=== PATIENT | male | born 1975 | race Caucasian/White ===

== ENCOUNTER 2019-01-06 10:11 | Emergency (ER) | payer OTHER ==
[~2019-01-06] VITALS: Ht 177.8 cm; Wt 81.8 kg
[2019-01-06 10:12] VITALS: BP 179/112
[2019-01-06] MEDS ORDERED: KETOROLAC 30 MG/ML VIAL (J1885) IV ONE (10:45)
[2019-01-06 11:06] LABS: BASO # 0.1 10^3/uL (0.0-0.2); BASO % 0.7 % (0.0-1.0); EOS # 0.1 10^3/uL (0.0-0.50); EOS % 1.4 % (0.0-3.0); HEMATOCRIT 46.9 % (42.0-52.0); HEMOGLOBIN 16.5 g/dl (13.5-17.5); LYMPH # 2.2 10^3/uL (1.5-4.5); MEAN CORPUSCULAR HEMOGLOBIN 30.2 pg (27.0-33.0); MEAN CORPUSCULAR HGB CONC 35.2 g/dl (32.0-36.5); MEAN CORPUSCULAR VOLUME 85.9 fl (80.0-96.0); MONO # 0.4 10^3/uL (0.0-0.8); NEUTROPHILS # 4.2 10^3/uL (1.8-7.7); NEUTROPHILS % 60.2 % (36.0-66.0); PLATELET COUNT, AUTOMATED 227 10^3/uL (150-450); RED BLOOD COUNT 5.46 10^6/uL (4.30-6.10)
[2019-01-06 11:25] LABS: BLOOD UREA NITROGEN 10 MG/DL (7-18); CARBON DIOXIDE LEVEL 24 MEQ/L (21-32); CHLORIDE LEVEL 108 MEQ/L (98-107); GLOMERULAR FILTRATION RATE > 60.0 (>60); GLUCOSE, FASTING 93 MG/DL (70-100); POTASSIUM SERUM 3.7 MEQ/L (3.5-5.1); SODIUM LEVEL 140 MEQ/L (136-145)
--- NOTE | 2019-01-06 11:39 | REP ---
CT abdomen and pelvis without IV or oral contrast: History: Left lateral abdomen pain. Rule out kidney stone. CT findings: Preliminary digital learning support teacher radiograph is unremarkable. The lung bases are clear on axial CT images. The liver and the spleen are normal in size, homogeneous in texture. Gallbladder and pancreas are unremarkable. No adrenal lesion is seen. There is a peripheral slightly hyperdense cyst at the left mid kidney posterolaterally. This measures 1 cm in diameter. No hydronephrosis is seen. There is an intrarenal calculus in the lower pole of the left kidney measuring 0.3 cm in diameter. No intrarenal calculus is noted on the right. There is minimal fullness in the left ureter. A 3 mm calculus is seen in the distal ureter several centimeters above the ureterovesical junction on the left. This is seen on axial image 127 of 159 in series 201. There are dystrophic calcifications in the prostate gland. No bladder calculus is seen. A normal appendix is seen. Small and large intestinal bowel loops are unremarkable. Impression: There is a 3 mm calculus in the left distal ureter without intrarenal hydronephrosis. Minimal ureterectasis. There is also an intrarenal calculus in the lower pole of the left kidney. There is a 1 cm hyperdense cyst in the left kidney as well. Otherwise negative. Electronically Signed by Piyush Chaudahry MD 01/06/2019 12:21 P
[2019-01-06] MEDS ORDERED: FLOM0.4C39 PO (11:45)
[2019-01-06] MEDS ORDERED: KETO10TAB PO (11:45)
[2019-01-06] MEDS ORDERED: TAMSULOSIN 0.4 MG CAP PO ONE (12:00)
== END 2019-01-06 12:06 | disposition home or self-care (01) ==
LOC: M ED 10:11
DX: N20.1 Calculus of ureter (principal); I10 Essential (primary) hypertension

== ENCOUNTER → 2019-01-21 | Outpatient (REF) | payer OTHER ==
[~2019-01-21] MED LIST: FLOM0.4C39 PO; KETO10TAB PO
[2019-01-21 18:05] LABS: AMORPHOUS SEDIMENT LARGE (NEGATIVE); APPEARANCE, URINE CLOUDY (CLEAR); BACTERIA, URINE AUTO NEGATIVE (NEGATIVE); BILIRUBIN, URINE AUTO NEGATIVE (NEGATIVE); BLOOD, URINE BLOOD NEGATIVE (NEGATIVE); COLOR, URINE YELLOW (YELLOW); GLUCOSE, URINE (UA) AUTO NEGATIVE (NEGATIVE); KETONE, URINE AUTO NEGATIVE (NEGATIVE); LEUKOCYTE ESTERASE, URINE AUTO NEGATIVE (NEGATIVE); NITRITE, URINE AUTO NEGATIVE (NEGATIVE); PROTEIN, URINE AUTO NEGATIVE (NEGATIVE); RBC, URINE AUTO 0 /HPF (0-3); SPECIFIC GRAVITY URINE AUTO 1.013 (1.002-1.035); SQUAMOUS EPITHELIAL CELL UR AU 0 /HPF (0-6); UROBILINOGEN, URINE AUTO 0.2 mg/dL (0.0-2.0); WBC, URINE AUTO 0 /HPF (0-3)
[2019-01-30 00:07] LABS: CA Oxalate Dihy 10 % (.); Ca Ox Monohydrate 55 % (.)
== END ==
LOC: M SMT 17:14
PROVIDERS: ATTEND Nurse Practitioner Women's Health
DX: N20.1 Calculus of ureter (principal)

== ENCOUNTER → 2019-01-30 | Outpatient (CLI) | payer OTHER ==
[~2019-01-30] MED LIST changes: +ISOVUE-370 76% 100ML VIAL (Q9967) As Ordered ONE
--- NOTE | 2019-01-31 04:00 | REP ---
Clinical: Microscopic hematuria. Technique: Axial precontrast, contrast enhanced, and delayed images of the abdomen and pelvis using 100 ml Isovue 370 intravenous contrast material. 3-D MIP urogram images obtained. Comparison: 01/06/2019. Findings: Evaluation of the urinary tract system demonstrates 1 mm nonobstructing calculus in the lower pole left kidney along with 9 mm exophytic hyperdense cyst along the posterolateral margin of the left kidney. Right kidney and bilateral ureters as well as bladder are normal. Previously noted 3 mm calculus in the distal left ureter has resolved. Liver, spleen, pancreas, gallbladder, and bilateral adrenal glands are normal. The enteric system is without obstruction or acute inflammatory process. Normal terminal ileum and appendix identified in the right lower quadrant. Pelvis demonstrates normal bladder and age appropriate prostate/seminal vesicles. No ascites. No free air. No adenopathy. Abdominal aorta without aneurysm. Musculoskeletal structures are intact. Lung bases are clear. Impression: 1. 1 mm nonobstructing left renal calculus and 9 mm benign appearing hyperdense cyst in the left kidney. Urinary tract system is otherwise unremarkable. 2. No further acute abdominopelvic pathology appreciated. Electronically Signed by Zacarias Salcedo MD 01/31/2019 03:51 A
== END ==
LOC: M RAD 15:38
PROVIDERS: ATTEND Nurse Practitioner Women's Health
DX: N20.0 Calculus of kidney (principal); N28.1 Cyst of kidney, acquired; R31.29 Other microscopic hematuria
CPT/HCPCS: 74178; Q9967

== ENCOUNTER → 2019-02-18 | Outpatient (REF) | payer OTHER ==
[~2019-02-18] MED LIST changes: -ISOVUE-370 76% 100ML VIAL (Q9967) As Ordered ONE
[2019-02-18 13:50] LABS: BASO # 0.1 10^3/uL (0.0-0.2); BASO % 0.8 % (0.0-1.0); EOS # 0.1 10^3/uL (0.0-0.50); EOS % 1.8 % (0.0-3.0); HEMATOCRIT 48.4 % (42.0-52.0); HEMOGLOBIN 16.6 g/dl (13.5-17.5); LYMPH # 2.1 10^3/uL (1.5-4.5); LYMPH % 28.7 % (24.0-44.0); MEAN CORPUSCULAR HEMOGLOBIN 29.6 pg (27.0-33.0); MEAN CORPUSCULAR HGB CONC 34.3 g/dl (32.0-36.5); MEAN CORPUSCULAR VOLUME 86.4 fl (80.0-96.0); MONO # 0.5 10^3/uL (0.0-0.8); MONO % 6.1 % (0.0-5.0); NEUTROPHILS # 4.6 10^3/uL (1.8-7.7); NEUTROPHILS % 62.3 % (36.0-66.0); PLATELET COUNT, AUTOMATED 259 10^3/uL (150-450); WHITE BLOOD COUNT 7.4 10^3/uL (4.0-10.0)
[2019-02-18 14:02] LABS: ALBUMIN 4.3 GM/DL (3.2-5.2); ALT/SGPT 31 U/L (12-78); BILIRUBIN,TOTAL 0.5 MG/DL (0.2-1.0); BLOOD UREA NITROGEN 15 MG/DL (7-18); CALCIUM LEVEL 9.6 MG/DL (8.5-10.1); CARBON DIOXIDE LEVEL 28 MEQ/L (21-32); CHLORIDE LEVEL 109 MEQ/L (98-107); CHOLESTEROL LEVEL 196 MG/DL (<200); CHOLESTEROL RISK RATIO 5.939 (<5); CREATININE FOR GFR 1.02 MG/DL (0.70-1.30); FREE T4 0.99 NG/DL (0.76-1.46); GLOMERULAR FILTRATION RATE > 60.0 (>60); GLUCOSE, FASTING 91 MG/DL (70-100); HDL CHOLESTEROL 33 MG/DL (>40); LDL CHOLESTEROL 108 MG/DL (<100); NON-HDL-C 163 MG/DL; POTASSIUM SERUM 5.2 MEQ/L (3.5-5.1); SODIUM LEVEL 141 MEQ/L (136-145); TOTAL PROTEIN 7.3 GM/DL (6.4-8.2); TRIGLYCERIDES LEVEL 277 MG/DL (<150)
[2019-02-18 14:24] LABS: HEMOGLOBIN A1c 5.5 %
== END ==
LOC: M LABDRWAD 12:14
PROVIDERS: ATTEND Physician Assistant
DX: Z13.29 Encounter for screening for other suspected endocrine disorder (principal); Z13.220 Encounter for screening for lipoid disorders

== ENCOUNTER → 2019-03-05 | Outpatient (CLI) | payer OTHER ==
--- NOTE | 2019-03-08 08:32 | SLEEPHOME ---
DATE OF PROCEDURE: 03/05/2019 ORDERED BY: Tad Rizo Diagnostic home sleep testing was performed due to concern for the obstructive sleep apnea syndrome in this patient with a history of excessive somnolence and snoring. For testing nocturnal T3 respiratory monitoring device was used. Continuous record was made of pulse oxygen saturation airflow, chest, abdominal strain and body position. 9 hours and 59 minutes of data were reviewed. There were 5 hours and 49 minutes marked as time in bed. During the interval marked time in bed there were 144 respiratory events identified of 10 seconds in duration or greater for respiratory event index of 24.70 events were primarily obstructive. Baseline pulse rate 64 beats per minute, pulse rate range 45-117. Baseline saturation was 94% saturations fell to 80%. Testing was performed in both the supine and nonsupine positions. IMPRESSION: Abnormal home sleep testing with repetitive respiratory events and oxygen desaturations to 80% with a respiratory event index of 24.7 is consistent with the obstructive sleep apnea syndrome. RECOMMENDATIONS: The patient should be encouraged to undergo formal sleep evaluation.
== END ==
LOC: M SLEEP HO 09:55
PROVIDERS: ATTEND Physician Assistant
DX: G47.8 Other sleep disorders (principal)

== ENCOUNTER 2021-04-20 11:13 | Emergency (ER) | payer OTHER ==
[~2021-04-20] VITALS: Ht 172.7 cm; Wt 81.8 kg
[2021-04-20] MEDS ORDERED: LISI10TA22 (11:19)
[2021-04-20] MEDS ORDERED: ROSU10TA6 (11:19)
--- OUTSIDE RECORDS SUMMARY | 2021-04-20 11:22 | CCD ---
Author Author [facility] Organization [facility] Address Unknown Phone Unavailable Care Team Providers Care Assembler Camper Name Role Phone Natalie CABRALES DPM Unavailable Unavailable Natalie CABRALES DPM Unavailable Unavailable Natalie CABRALES DPM Unavailable Unavailable Natalie CABRALES DPM Unavailable Unavailable Natalie CABRALES DPM Unavailable Unavailable Natalie CABRALES DPM Unavailable Unavailable Natalie CABRALES DPM Unavailable Unavailable Natalie CABRALES DPM Unavailable Unavailable Natalie CABRALES DPM Unavailable Unavailable Natalie CABRALES DPM Unavailable Unavailable Natalie CABRALES DPM Unavailable Unavailable Natalie CABRALES DPM Unavailable Unavailable Natalie CABRALES DPM Unavailable Unavailable Natalie CABRALES DPM Unavailable Unavailable [place] CABRALES DPM Unavailable Unavailable Natalie CABRALES DPM Unavailable Unavailable Natalie CABRALES DPM Unavailable Unavailable Natalie CABRALES DPM Unavailable Unavailable Natalie CABRALES DPM Unavailable Unavailable Natalie CABRALES DPM Unavailable Unavailable Natalie CABRALES DPM Unavailable Unavailable Natalie CABRALES DPM Unavailable Unavailable Natalie CABRALES DPM Unavailable Unavailable Natalie CABRALES DPM Unavailable Unavailable MAJAK, R TEMITOPE DPM Unavailable Unavailable MAJAK, R TEMITOPE DPM Unavailable Unavailable MAJAK, R TEMITOPE DPM Unavailable Unavailable MAJAK, R TEMITOPE DPM Unavailable Unavailable MAJAK, R TEMITOPE DPM Unavailable Unavailable MAJAK, R TEMITOPE DPM Unavailable Unavailable MAJAK, R TEMITOPE DPM Unavailable Unavailable Tashia Shah RDH Unavailable Re-disclosure Warning The records that you are about to access may contain information from federally-assisted alcohol or drug abuse programs. If such information is present, then the following federally mandated warning applies: This information has been disclosed to you from records protected by federal confidentiality rules (42 CFR part 2). The federal rules prohibit you from making any further disclosure of this information unless further disclosure is expressly permitted by the written consent of the person to whom it pertains or as otherwise permitted by 42 CFR part 2. A general authorization for the release of medical or other information is NOT sufficient for this purpose. The Federal rules restrict any use of the information to criminally investigate or prosecute any alcohol or drug abuse patient.The records that you are about to access may contain highly sensitive health information, the redisclosure of which is protected by Article 27-F of the [facility] Public Health law. If you continue you may have access to information: Regarding HIV / AIDS; Provided by facilities licensed or operated by the [facility] Office of Mental Health; or Provided by the [facility] Office for People With Developmental Disabilities. If such information is present, then the following [facility] mandated warning applies: This information has been disclosed to you from confidential records which are protected by state law. State law prohibits you from making any further disclosure of this information without the specific written consent of the person to whom it pertains, or as otherwise permitted by law. Any unauthorized further disclosure in violation of state law may result in a fine or shelter sentence or both. A general authorization for the release of medical or other information is NOT sufficient authorization for further disc losure. Family History Family Member Name Family Member Gender Family Member Status Date o f Status Description Data Source(s) Unknown Male Problem MEDENT ([facility]) Unknown Female Problem MEDENT ([facility]) Unknown Female Problem MEDENT ([facility]) Unknown Unknown Problem MED[facility] ([facility]) Encounters Encounter Providers Location Date Indications Data Source(s ) Outpatient Attender: TEMITOPE CABRALES [facility] Office 01/2021 09:15:00 AM EDT [facility] ([facility] <td ID="encounterTypeDescriptionID0">H A dult Prophy</td><td>Tashia Shah RD</td><td>[facility]</td><td>05/12/2020</td><td></td>Unknown Attender: Tashia Harperke RD [facility] 05/12/2020 08:04:00 AM EST - 05/12/2020 11:59:00 PM EST [facility] ([facility]) Medications No Information Insurance Providers Payer name Policy type / Coverage type Policy ID Covered democrat ID Covered democrat's relationship to maza Policy Maza Plan Information [employer] (WC) Workers Compensation .[id number] Self R [facility] [id number] SP [id number] R [facility] [id number] SP [id number] [facility] [id number] SP [id number] [facility] [id number] SP [id number] ANSI-Commercial [id number] [employer] W/C [id number] [employer] [id number] Self [id number] [employer] [id number] Self [employer] W/C [id number] [employer] (pr) Medigap Part B [id number] Self [employer] [id number] Self 333 [employer] W/C [id number] SP [id number] [employer] [id number] SP [id number] [facility] SELF INSURED [id number] SP [id number] DEPT OF LABOR [id number] SP [id number] ANSI-Commercial [id number] ANSI-Commercial [id number] Problems, Conditions, and Diagnoses Code Display Name Description Problem Type Effective Dates Data Source(s) B35.1 Onychomycosis Onychomycosis Problem 04/15/2021 12:00:00 AM EDT [facility] ([facility] Surgeries/Procedures Procedure Description Date Indications Data Source(s) OFFICE OUTPATIENT NEW 30 MINUTES 04/02/2021 12:00:00 A M EDT [facility] ([facility] Oral Hygiene[facility] Oral Hygiene[facility] 05/12/2020 12:00:00 AM EST [facility] ([facility]) Nutritional Counseling Nutritional Counseling 05/12/2020 12:00:00 A M EST [facility] ([facility]) Prophylaxis Adult Prophylaxis Adult 05/12/2020 12:00:00 AM EST [facility] ([facility]) Bitewing - 4 radiographic images Bitewing - 4 radiographic i mages 05/12/2020 12:00:00 AM EST [facility] ([facility]) Results ID Date Data Source [id number] 06/29/2020 12:00:00 AM EST [place] Name Value Range Interpretation Code Description Data Nayeli rce(s) Supporting Document(s) SARS coronavirus 2 Ag Negative [place] This lab was ordered by [facility] and reported by [facility]. Procedure Social History No Information Vital Signs ID Date Data Source UNK Name Value Range Interpretation Code Description Data Source(s) Body height 70 [in_i] 70 [in_i] [facility] ([facility] 5'10" Body weight 185.00 [lb_av] 185.00 [lb_av] MEDEN T ([facility] Systolic blood pressure 138 mm[Hg] 138 mm[Hg] EDENT ([facility] Diastolic blood pressure 88 mm[Hg] 88 mm[Hg] MED[facility] ([facility] Heart rate 76 /min 76 /min MED[facility] ([facility] Body mass index (BMI) [Ratio] 26.5 kg/m2 26.5 k g/m2 [facility] ([facility]
--- OUTSIDE RECORDS SUMMARY | 2021-04-20 11:22 | CCD | Continuity of Care Document ---
Author Author Wencesla[facility] BROWNING DPCarmen Organization Unknown Address [address] [place] [address], [facility] [address] [place] [address] Phone [phone] Care Team Providers Care Reflow Operator Name Role Phone Tad Hall AUTM [phone] Problems Active Problems Provider Date Onychomycosis Giovani Browning DPM Onset: 04/15/2021 Social History Type Date Description Comments Sex Unknown ETOH Use Occasionally consumes alcohol ma ybe once every twoweeks has a beer Tobacco Use Start: Unknown Patient has never smoked Allergies and adverse reactions Description No Known Drug Allergies Medications Active Medications SIG Qnty Indications Ordering Provide r Date Lisinopril Unknown Rosuvastatin Calcium Unknown 00/0 Immunizations Description No Information Available Vital Signs Date Vital Result Comment 04/02/2021 9:03am Height 70 inches 5'10" Weight 185.00 lb BP Systolic 138 mmHg BP Diastolic 88 mmHg Heart Rate 76 /min BMI (Body Mass Index) 26.5 kg/m2 Results Description No Information Available Procedures Date Code Description Status 04/02/2021 60859 Office/Outpatient New Low MDM 30 -44 Minutes Completed Medical Devices Description No Information Available Encounters Type Date Location Provider Dx Diagnosis Office Visit 04/02/2021 9:15a [place] [facility] Giovani Browning DPM B35.1 Tinea unguium Assessments Date Code Description Provider 04/02/2021 B35.1 Tinea unguium Giovani Browning DPM Plan of Treatment Future Appointment(s):* 06/04/2021 9:30 am - Giovani Browning DPM at [place] [facility] Functional Status Description No Information Available Mental Status Description No Information Available Referrals Description No Information Available
[2021-04-20 12:18] LABS: RSV AMPLIFICATION NEGATIVE (NEGATIVE)
--- OUTSIDE RECORDS SUMMARY | 2021-04-20 12:41 | CCD ---
Author Author [facility] Organization [facility] Address Unknown Phone Unavailable Care Team Providers Care Water Conservation Specialist Name Role Phone Natalie CABRALES DPM Unavailable [...] is protected by Article 27-F of the [facility] Public Health law. If you continue you may have access to information: Regarding HIV / AIDS; Provided by facilities licensed or operated by the [facility] Office of Mental Health; or Provided by the [facility] Office for People With Developmental Disabilities. If such information is present, then the following [facility] mandated warning applies: This information has been [...] law may result in a fine or retirement sentence or both. A general authorization for [...] Data Source(s ) Outpatient Attender: TEMITOPE CABRALES [facility] Office 01/2021 09:15:00 AM EDT [facility] ([facility] <td ID="encounterTypeDescriptionID0">H A dult Prophy</td><td>Tashia Shah RD</td><td>[facility]</td><td>05/12/2020</td><td></td>Unknown Attender: Tashia Harperke RD [facility] 05/12/2020 08:04:00 AM EST - 05/12/2020 11:59:00 PM EST [facility] ([facility]) Medications No Information Insurance Providers Payer name Policy type / Coverage type Policy ID Covered green party ID Covered green party's relationship to maza Policy Maza Plan Information [employer] (WC) Workers Compensation .[id number] Self R [facility] [id number] SP [id number] R [facility] [id number] SP [id number] [facility] [id number] SP [id number] [facility] [id number] SP [id number] ANSI-Commercial [id number] [employer] W/C [id number] [employer] [id number] Self [id number] [employer] [id number] Self [employer] W/C [id number] [employer] (pr) Medigap Part B [id number] Self [employer] [id number] Self 333 [employer] W/C [id number] SP [id number] [employer] [id number] SP [id number] [facility] SELF INSURED [id number] SP [id number] DEPT OF LABOR [id number] SP [id number] ANSI-Commercial [id number] ANSI-Commercial [id number] Problems, Conditions, and Diagnoses Code Display Name Description Problem Type Effective Dates Data Source(s) B35.1 Onychomycosis Onychomycosis Problem 04/15/2021 12:00:00 AM EDT [facility] ([facility] Surgeries/Procedures Procedure Description Date Indications Data Source(s) OFFICE OUTPATIENT NEW 30 MINUTES 04/02/2021 12:00:00 A M EDT [facility] ([facility] Oral Hygiene[facility] Oral Hygiene[facility] 05/12/2020 12:00:00 AM EST [facility] ([facility]) Nutritional Counseling Nutritional Counseling 05/12/2020 12:00:00 A M EST [facility] ([facility]) Prophylaxis Adult Prophylaxis Adult 05/12/2020 12:00:00 AM EST [facility] ([facility]) Bitewing - 4 radiographic images [facility] - 4 radiographic i mages 05/12/2020 12:00:00 AM EST [facility] ([facility]) Results ID Date Data Source [id number] 06/29/2020 12:00:00 AM EST [place] Name Value Range Interpretation Code Description Data Nayeli rce(s) Supporting Document(s) SARS coronavirus 2 Ag Negative [place] This lab was ordered by [facility] and reported by [facility]. Procedure Social History No Information Vital Signs [...]
[2021-04-20 13:16] VITALS: BP 165/100
== END 2021-04-20 13:14 | disposition home or self-care (01) ==
LOC: M ED 11:13
DX: R50.9 Fever, unspecified (principal); U07.1 COVID-19; I10 Essential (primary) hypertension; E78.00 Pure hypercholesterolemia, unspecified; Z79.899 Other long term (current) drug therapy

== ENCOUNTER → 2021-05-05 | Outpatient (REF) | payer OTHER ==
[~2021-05-05] MED LIST changes: +LISI10TA22; +ROSU10TA6
[2021-05-05 13:08] LABS: BASO # 0.1 10^3/uL (0.0-0.2); EOS # 0.1 10^3/uL (0.0-0.5); EOS % 1.5 % (0.0-3.0); HEMATOCRIT 44.7 % (42.0-52.0); HEMOGLOBIN 15.1 g/dl (13.5-17.5); LYMPH # 2.1 10^3/uL (1.5-5.0); LYMPH % 30.6 % (24.0-44.0); MEAN CORPUSCULAR HEMOGLOBIN 29.4 pg (27.0-33.0); MEAN CORPUSCULAR HGB CONC 33.8 g/dl (32.0-36.5); MONO # 0.5 10^3/uL (0.0-0.8); MONO % 7.9 % (2.0-8.0); NEUTROPHILS % 58.6 % (36.0-66.0); PLATELET COUNT, AUTOMATED 316 10^3/uL (150-450); RED BLOOD COUNT 5.14 10^6/uL (4.30-6.10); WHITE BLOOD COUNT 6.7 10^3/uL (4.0-10.0)
[2021-05-05 13:22] LABS: BLOOD UREA NITROGEN 11 MG/DL (7-18); CREATININE FOR GFR 0.94 MG/DL (0.70-1.30); GLUCOSE, FASTING 98 MG/DL (70-100)
[2021-05-05 13:23] LABS: ALT/SGPT 54 U/L (12-78); BILIRUBIN,DIRECT < 0.1 MG/DL (0.0-0.2); BILIRUBIN,TOTAL 0.3 MG/DL (0.2-1.0); CALCIUM LEVEL 9.8 MG/DL (8.5-10.1); CARBON DIOXIDE LEVEL 30 MEQ/L (21-32); CHLORIDE LEVEL 109 MEQ/L (98-107); GLOMERULAR FILTRATION RATE > 60.0 (>60); PHOSPHORUS LEVEL 2.9 MG/DL (2.5-4.9); POTASSIUM SERUM 4.7 MEQ/L (3.5-5.1); SODIUM LEVEL 141 MEQ/L (136-145)
== END ==
LOC: M LABDRWAD 12:37
PROVIDERS: ATTEND Podiatrist Foot & Ankle Surgery
DX: B35.1 Tinea unguium (principal)

== ENCOUNTER → 2021-08-31 | Outpatient (CLI) | payer OTHER ==
[2021-08-31 13:21] LABS: BASO % 0.7 % (0.0-1.0); EOS # 0.1 10^3/uL (0.0-0.5); EOS % 1.7 % (0.0-3.0); HEMATOCRIT 45.4 % (42.0-52.0); HEMOGLOBIN 15.8 g/dl (13.5-17.5); LYMPH # 2.1 10^3/uL (1.5-5.0); MEAN CORPUSCULAR HEMOGLOBIN 29.8 pg (27.0-33.0); MEAN CORPUSCULAR HGB CONC 34.8 g/dl (32.0-36.5); MEAN CORPUSCULAR VOLUME 85.5 fl (80.0-96.0); MONO # 0.3 10^3/uL (0.0-0.8); MONO % 5.3 % (2.0-8.0); NEUTROPHILS # 3.5 10^3/uL (1.5-8.5); NEUTROPHILS % 57.1 % (36.0-66.0); PLATELET COUNT, AUTOMATED 223 10^3/uL (150-450); RED BLOOD COUNT 5.31 10^6/uL (4.30-6.10); WHITE BLOOD COUNT 6.1 10^3/uL (4.0-10.0)
[2021-08-31 13:59] LABS: ALBUMIN 4.1 GM/DL (3.2-5.2); ALT/SGPT 45 U/L (12-78); BILIRUBIN,TOTAL 0.6 MG/DL (0.2-1.0); BLOOD UREA NITROGEN 14 MG/DL (7-18); CALCIUM LEVEL 9.1 MG/DL (8.5-10.1); CARBON DIOXIDE LEVEL 27 MEQ/L (21-32); CHLORIDE LEVEL 109 MEQ/L (98-107); CHOLESTEROL LEVEL 141 MG/DL (<200); GLOMERULAR FILTRATION RATE > 60.0 (>60); GLUCOSE, FASTING 86 MG/DL (70-100); HDL CHOLESTEROL 37 MG/DL (>40); LDL CHOLESTEROL 80 MG/DL (<100); NON-HDL-C 104 MG/DL; POTASSIUM SERUM 4.1 MEQ/L (3.5-5.1); SODIUM LEVEL 140 MEQ/L (136-145); TOTAL PROTEIN 6.9 GM/DL (6.4-8.2); TRIGLYCERIDES LEVEL 119 MG/DL (<150)
[2021-08-31 14:01] LABS: TOTAL 25(OH) VITAMIN D 18.3 NG/ML (30.0-100.0)
== END ==
LOC: M LABDRWAD 12:24
PROVIDERS: ATTEND Physician Assistant
DX: E78.2 Mixed hyperlipidemia (principal)

== ENCOUNTER → 2022-02-23 | Outpatient (CLI) | payer OTHER | LOC: M SLEEP 20:00 | PROVIDERS: ATTEND Nurse Practitioner Family | DX: G47.33 Obstructive sleep apnea (adult) (pediatric) (principal) ==